=== PATIENT | female | born 1965 | race Caucasian/White ===

== ENCOUNTER 2019-08-03 08:54 | Day surgery (SDC) | payer BC ==
[2019-07-30 10:07] VITALS: BMI 21.1
[2019-08-03] MEDS ORDERED: PROPOFOL 20 ML ONE ×2 (08:59)
[2019-08-03 10:01] VITALS: TEMP 97.5
[2019-08-03 10:32] VITALS: BP 95/58; PULSE 58
== END 2019-08-03 10:35 | disposition home or self-care (01) ==
LOC: FASU-ENDO 08:54
PROVIDERS: ATTEND Internal Medicine Gastroenterology
PROC: 0DJD8ZZ Inspection of Lower Intestinal Tract, Via Natural or Artificial Opening Endoscopic (ICD-10-PCS; principal; 2019-08-03 09:30)
DX: Z12.11 Encounter for screening for malignant neoplasm of colon (principal)
CPT/HCPCS: 84703

== ENCOUNTER 2023-10-22 23:24 | Emergency (ER) | payer BC, OTHER ==
[2023-10-22 23:41] VITALS: BP 105/47; PULSE 60; RESP 17; TEMP 97.7; BMI 23.5
== END 2023-10-23 02:22 | disposition home or self-care (01) ==
LOC: FER 23:24
DX: R07.89 Other chest pain (principal); F06.4 Anxiety disorder due to known physiological condition
CPT/HCPCS: 36415; 84484; 93005; 99284-25